=== PATIENT | female | born 1980 | race Hispanic/Latino ===

== ENCOUNTER 2017-08-28 08:09 | Observation (INO) | payer OTHER ==
--- NOTE | 2017-08-28 09:30 | ED PDOC ---
Arrival/HPI - General Chief Complaint: Dizziness/Lightheaded Time Seen by Provider: 08/28/17 08:58 Historian: Patient - History of Present Illness Narrative History of Present Illness (Text): 08/28/17 09:24 Pt is a 37 yo F with PMH of alcoholic cirrhosis s/p liver transplant presents to emergency department due to dizziness and near syncope. Patient states that for the last 2 months she has felt dizzy especially when standing up too fast, however the dizziness will not go away even after she starts to ambulate for a long period. Patient also admits to intermittent episodes of near syncope, but denies any history of LOC or falls. 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 Pt denies CP, SOB, n/v/d, abdominal pain, fever, chills, BECKER, or dysuria. PMD: William Cardio: Dave Time/Duration: > month Symptom Onset: Gradual Symptom Course: Unchanged Activities at Onset: Rest Past Medical History - Provider Review Nursing Documentation Reviewed: Yes - Infectious Disease Hx of Infectious Diseases: None - Tetanus Immunization Tetanus Immunization: Up to Date - Cardiac Hx Cardiac Disorders: No - Pulmonary Hx Respiratory Disorders: No - Neurological Hx Neurological Disorder: No - HEENT Hx HEENT Disorder: No - Renal Hx Renal Disorder: No - Endocrine/Metabolic Hx Endocrine Disorders: Yes (GESTATIONAL DIABETES) - Hematological/Oncological Hx Blood Disorders: Yes Hx Cirrhosis: Yes Other/Comment: Alcohol induced Hep. GAYATHRI - Integumentary Hx Dermatological Disorder: No - Musculoskeletal/Rheumatological Hx Musculoskeletal Disorders: No - Gastrointestinal Hx Gastrointestinal Disorders: Yes (END STAGE LIVER DSE-JAUNDICED,ASCITES) Hx Liver Failure: Yes - Genitourinary/Gynecological Hx Genitourinary Disorders: Yes (C [id number] X 1) - Psychiatric Hx Psychophysiologic Disorder: No Hx Substance Use: No - Surgical History Other/Comment: Liver transplant last year. - Anesthesia Hx Anesthesia: Yes Hx Anesthesia Reactions: No Hx Malignant Hyperthermia: No Family/Social History - Physician Review Nursing Documentation Reviewed: Yes Family/Social History: No Known Family HX Smoking Status: Never Smoked Hx Alcohol Use: Yes (ETOH ABUSE H/O LAST DRANK 3-4 MOS AGO. BOTTLE OF WINE DAILY ) Hx Substance Use: No Allergies/Home Meds Allergies/Adverse Reactions: Allergies Penicillins Adverse Reaction (Intermediate, Verified 08/28/17 08:41) RASH Home Medications: Home Meds Medication Instructions Recorded Confirmed Cyclosporine [Cyclosporine] 125 mg PO BID 08/28/17 08/28/17 Magnesium Oxide [Magnesium] 400 mg PO BID 08/28/17 08/28/17 Review of Systems - Review of Systems Constitutional: Normal Eyes: Normal ENT: Normal Respiratory: Normal Cardiovascular: Normal Gastrointestinal: Normal Genitourinary Female: Normal Musculoskeletal: Normal Skin: Normal Neurological: Dizziness Endocrine: Normal Hemo/Lymphatic: Normal Psychiatric: Normal Physical Exam Vital Signs Temp Pulse Resp BP Pulse Ox 08/28/17 11:32 98.6 F 84 18 127/78 100 08/28/17 08:46 98.6 F 77 17 134/83 99 08/28/17 08:37 98.2 F 81 18 134/83 100 Temperature: Afebrile Blood Pressure: Normal Pulse: Regular Respiratory Rate: Normal Appearance: Positive for: Non-Toxic Pain Distress: None Mental Status: Positive for: Alert and Oriented X 3 Finger Stick Blood Glucose: 97 - Systems Exam Head: Present: Atraumatic, Normocephalic Pupils: Present: PERRL Extroacular Muscles: Present: EOMI Conjunctiva: Present: Normal Mouth: Present: Moist Mucous Membranes Neck: Present: Normal Range of Motion Respiratory/Chest: Present: Clear to Auscultation, Good Air Exchange. No: Respiratory Distress, Accessory Muscle Use Cardiovascular: Present: Regular Rate and Rhythm, Normal S1, S2. No: Murmurs Abdomen: No: Tenderness, Distention, Peritoneal Signs Back: Present: Normal Inspection Upper Extremity: Present: Normal Inspection. No: Cyanosis, Edema Lower Extremity: Present: Normal Inspection. No: Edema Neurological: Present: GCS=15, CN II-XII Intact, Speech Normal Skin: Present: Warm, Dry, Normal Color. No: Rashes Psychiatric: Present: Alert, Oriented x 3, Normal Insight, Normal Concentration Medical Decision Making ED Course and Treatment: 08/28/17 09:34 37 yo F presents to emergency department with dizziness and episodes of near syncope. Plan: - CBC, CMP - Coags - Cardiac ISO - EKG - Head CT - Orthostatics - POC - Reassess and disposition Manual BP left arm 122/80, right arm 130/80 08/28/17 09:[address] w/o contrast Impression: Normal CT of Head 08/28/17 09:51 Orthostatics negative. EKG reviewed shows NSR, rate 74. 08/28/17 13:[address] Acosta, requests overnight observation. Case discussed with Dr. Thomas, who agrees with plan and accepts patient under her service. Patient admitted to remote telemetry for observation. - Lab Interpretations Lab Results: 08/28/17 10:25 08/28/17 10:25 Lab Results 08/28/17 10:25: PT 11.6, INR 1.01, APTT 27.4 08/28/17 10:25: Sodium 132, Potassium 5.1 H, Chloride 96 L, Carbon Dioxide 22, Anion Gap 18, BUN 19, Creatinine 0.8, Est GFR ( Amer) > 60, Est GFR (Non- Af Amer) > 60, Random Glucose 95, Calcium 9.4, Magnesium 2.1, Total Bilirubin 0.4, AST 27, ALT 25, Alkaline Phosphatase 77, Lactate Dehydrogenase 376, Total Creatine Kinase 138, Troponin I < 0.01, Total Protein 7.8, Albumin 4.7, Globulin 3.1, Albumin/Globulin Ratio 1.5 08/28/17 10:25: WBC 6.4 D, RBC 3.92, Hgb 11.4 L, Hct 32.0 L, MCV 81.6, MCH 29.1 , MCHC 35.6, RDW 13.4, Plt Count 179, MPV 8.8, Gran % 66.8, Lymph % (Auto) 24.4 , [place] % (Auto) 8.0 H, Eos % (Auto) 0.6 L, Baso % (Auto) 0.2, Gran # 4.28, Lymph # (Auto) 1.6, [place] # (Auto) 0.5, Eos # (Auto) 0.0, Baso # (Auto) 0.01 08/28/17 08:52: POC Glucose (mg/dL) 97 - RAD Interpretation Radiology Orders: 08/28/17 09:13 HEAD W/O CONTRAST [CT] Stat 08/28/17 12:31 CAROTID & VERTEBRAL DUPLEX [US] Urgent - Medication Orders Current Medication Orders: Cyclosporine (Sandimmune) 100 mg PO BID MARIO Cyclosporine (Sandimmune) 25 mg PO BID MARIO Discontinued Medications Cyclosporine (Sandimmune) 125 mg PO BID MARIO Disposition/Present on Arrival - Present on Arrival Any Indicators Present on Arrival: No History of DVT/PE: No History of Uncontrolled Diabetes: No Urinary Catheter: No History of Decub. Ulcer: No History Surgical Site Infection Following: None - Disposition Have Diagnosis and Disposition been Completed?: Yes Diagnosis: Near syncope Disposition: HOME/ ROUTINE Disposition Time: 13:03 Patient Plan: Admission, Other (Remote telemetry) Condition: STABLE
--- NOTE | 2017-08-28 09:43 | CT ---
PROCEDURE: CT HEAD WITHOUT CONTRAST. HISTORY: near syncope COMPARISON: None available. TECHNIQUE: Axial computed tomography images were obtained through the head/brain without intravenous contrast. Radiation dose: Total exam DLP = 768.5 mGy-cm. This CT exam was performed using one or more of the following dose reduction techniques: Automated exposure control, adjustment of the mA and/or kV according to patient size, and/or use of iterative reconstruction technique. FINDINGS: HEMORRHAGE: No intracranial hemorrhage. BRAIN: No mass effect or edema. No atrophy or chronic microvascular ischemic changes. VENTRICLES: Unremarkable. No hydrocephalus. CALVARIUM: Unremarkable. PARANASAL SINUSES: Unremarkable as visualized. No significant inflammatory changes. MASTOID AIR CELLS: Unremarkable as visualized. No inflammatory changes. OTHER FINDINGS: None. IMPRESSION: Normal CT of the Head. No intracranial mass, hemorrhage or evidence of acute infarct.
[2017-08-28 10:49] LABS: BASO # 0.01 K/mm3 (0.0-2.0); BASO % 0.2 % (0.0-3.0); EOS % 0.6 % (1.5-5.0); GRAN # 4.28 (1.4-6.5); GRAN % 66.8 % (50.0-68.0); HEMOGLOBIN 11.4 g/dL (12.0-16.0); LYMPH # 1.6 (1.2-3.4); LYMPH % 24.4 % (22.0-35.0); MEAN CELL VOLUME 81.6 fl (80.0-105.0); MEAN CORPUSCULAR HEMOGLOBIN 29.1 pg (25.0-35.0); MEAN CORPUSCULAR HGB CONC 35.6 g/dl (31.0-37.0); MEAN PLATELET VOLUME 8.8 fl (7.0-11.0); MONO # 0.5 (0.1-0.6); RBC 3.92 10^6/uL (3.5-6.1); RED CELL DISTRIBUTION WIDTH 13.4 % (11.5-14.5); WHITE BLOOD COUNT 6.4 10^3/ul (4.5-11.0)
[2017-08-28 10:57] LABS: ALB/GLOB RATIO 1.5 (1.1-1.8); ALBUMIN 4.7 g/dL (3.0-4.8); ALT/SGPT 25 U/L (7-56); AST/SGOT 27 U/L (14-36); BLOOD UREA NITROGEN 19 mg/dL (7-21); CALCIUM 9.4 mg/dL (8.4-10.5); GFR AFRICAN-AMERICAN > 60; GFR NON-AFRICAN AMERICAN > 60
[2017-08-28 11:03] LABS: INR 1.01 (0.93-1.08); PARTIAL THROMBOPLASTIN TIME 27.4 Seconds (25.1-36.5); PROTHROMBIN TIME 11.6 SECONDS (9.4-12.5)
[2017-08-28 11:08] LABS: TROPONIN I < 0.01 ng/mL
[2017-08-28] MEDS ORDERED: Sodium Chloride 0.45% 1,000 ML IV SCH (17:30)
--- NOTE | 2017-08-28 19:30 | US ---
PROCEDURE: Bilateral carotid artery duplex ultrasound HISTORY: Carotid stenosis syncope PHYSICIAN(S): Russ Danielson MD. TECHNIQUE: Duplex sonography and color-flow Doppler were used to evaluate the carotid bifurcations and limited segments of the vertebral arteries bilaterally. FINDINGS: There is mild smooth hypoechoic plaque noted at the carotid bifurcations bilaterally. The peak systolic velocity in the proximal right internal carotid artery is 83 cm/sec. This corresponds to a 0-19 percent proximal right ICA stenosis. Normal systolic velocities are noted in the proximal right external carotid artery. There is antegrade flow in the right vertebral artery. The peak systolic velocity in the proximal left internal carotid artery is 71 cm/sec. This corresponds to a 0-19 percent proximal left ICA stenosis. Normal systolic velocities are noted in the proximal left external carotid artery. There is antegrade flow in the left vertebral artery. IMPRESSION: 1. Bilateral 0-19 percent proximal ICA stenoses. 2. Antegrade flow in both vertebral arteries.
--- NOTE | 2017-08-28 20:24 | CON ---
DATE: 08/28/2017 CARDIOLOGY CONSULTATION HISTORY: The patient is a 37-year-old woman who presents with recurrent dizziness as well as near syncopal episodes. The patient's past medical history is notable for history of liver transplantation after liver failure. She is currently on suppressive therapy post liver transplant. In addition, the patient is receiving magnesium as well as sodium pills for metabolic abnormalities. When I saw her in the office, the patient's blood pressure was 90 with differences in blood pressure from the left and right arm. She denies previous cardiac history. PHYSICAL EXAMINATION: VITAL SIGNS: Currently, she was seen in the emergency room where her blood pressures are equal in the upper extremities at 134/83. NECK: Negative JVD. LUNGS: Without rales. HEART: Reveals S1, S2. EXTREMITIES: Without edema. LABORATORY DATA: EKG is unremarkable. Potassium is 5.1, sodium is 132. Hemoglobin is 11.4. IMPRESSION: 1. Recurrent near syncopal episodes. 2. Transient hypotension. 3. History of liver transplantation. 4. Anemia. 5. Marked anxiety. PLAN: Given these findings, we will obtain a carotid ultrasound. We will observe her on telemetry for 24 hours and monitor serial blood pressures. Russ Acosta MD
[2017-08-28 21:00] VITALS: BMI 30.2
--- NOTE | 2017-08-28 22:11 | CARD ---
APPROVED REPORT EKG Measurement Heart [id number] <Conclusion> Normal sinus rhythm Normal ECG
[2017-08-29 07:41] LABS: ALB/GLOB RATIO 1.4 (1.1-1.8); ALBUMIN 4.3 g/dL (3.0-4.8); ALT/SGPT 27 U/L (7-56); AST/SGOT 28 U/L (14-36); BLOOD UREA NITROGEN 13 mg/dL (7-21); GFR AFRICAN-AMERICAN > 60; GFR NON-AFRICAN AMERICAN > 60
[2017-08-29 07:53] VITALS: BP 122/86; RESP 20; TEMP 98; O2SAT 98
--- NOTE | 2017-08-29 08:45 | HP ---
HISTORY OF PRESENT ILLNESS: The patient is a 37-year-old, she was seen in office day before yesterday. 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 I gave her meclizine with no significant relief. She was supposed to see Dr. Acosta yesterday who found that her blood pressure was low at 90/60 in both arms. So he referred her to be admitted and have close monitoring done. Patient denies any nausea or vomiting. No history of diarrhea. Patient states she is usually hyponatremic and she takes 1 g of sodium daily. She denies any fever. No chills. No nausea or vomiting. Only has dizziness. PAST MEDICAL HISTORY: She is heavy alcohol abuser and she went in to hepatic failure, ended up having liver transplant in 2017, has been doing well since then. She was on anti-rejection medication earlier, but currently she is only on cyclosporine. ALLERGIES: SHE IS ALLERGIC TO PENICILLIN. MEDICATIONS: At home, she is on sodium 1 g every 12 hours and she takes cyclosporine 125 mg twice a day. SOCIAL HISTORY: She was a heavy alcohol abuser, and does not drink anymore. No history of smoking. PHYSICAL EXAMINATION: GENERAL: She is awake, alert, oriented. She states she feels well when she is steady and when she is not standing up; while in bed, dizziness is not there; however, when she stands up, she feel dizzy. VITAL SIGNS: She is afebrile, pulse 81, respirations 19, blood pressure 130/69. LUNGS: Bilateral fair airflow. No rhonchi or crackle. HEART: S1 and S2 audible. ABDOMEN: Soft, nontender. No rebound. No guarding. NEUROLOGICAL: She is awake, alert, oriented and communicative. LABORATORY DATA: WBC is 6.4, hemoglobin 11.4, hematocrit 32, platelet 179. PT 11.6, INR 1.06. Chemistry: Sodium 132, potassium 5.1, chloride 96, CO2 of 22, BUN 19, creatinine 0.8. Blood sugar of 95. DIAGNOSTIC DATA: Carotid Doppler is pending. CT scan of the head normal, no intracranial mass. ASSESSMENT: 1. Dizziness, probably benign positional vertigo. 2. History of liver transplant, currently on cyclosporine. 3. Hyperkalemia, etiology unknown. PLAN: Give her IV fluids. Monitor her blood pressure. Follow up carotid Doppler. If patient remains stable, she will be discharged in the a.m. Dave Thomas MD
[2017-08-29] MEDS ORDERED: Magnesium Oxide 400 mg Tab UD PO SCH (10:00)
--- NOTE | 2017-08-29 11:35 | PN ---
DATE: 08/29/2017 SUBJECTIVE: The patient is ambulating without dizziness, feeling well. PHYSICAL EXAMINATION: VITAL SIGNS: Blood pressure is 122/86, heart rate in the 70s. Review of playground monitor reveals no arrhythmias. NECK: Negative JVD. LUNGS: Without rales. HEART: Reveals S1, S2. EXTREMITIES: Without edema. LABORATORY DATA: The hemoglobin is 11.4. Chemistries unremarkable except for a sodium of 128. IMPRESSION: 1. No cardiac arrhythmias. 2. No dizzy or near syncopal episodes. 3. No hypotension. 4. History of liver transplantation. 5. Anemia. 6. Anxiety which is better. Given these findings, her workup has been unremarkable. I will discontinue telemetry today. From a cardiac perspective, the patient can be discharged. Russ Acosta MD
[2017-08-29 11:51] VITALS: PULSE 94
--- NOTE | 2017-08-29 23:43 | DS ---
HISTORY OF PRESENT ILLNESS: The patient is 37 years old, seen and examined, seems to be doing better. She states she feels dizzy when she stand up or walk. She was monitored for 24 hours. Her blood pressure instead of being hypo, it has been running hypertension. Denies any fever or chills. No nausea or vomiting. PHYSICAL EXAMINATION: VITAL SIGNS: She is afebrile, pulse 78, respirations 20, blood pressure 122/86. LUNGS: Bilateral fair airflow. No rhonchi or crackle. HEART: S1 and S2 audible. ABDOMEN: Soft. Nontender. No rebound. No guarding. NEUROLOGICAL: The patient is awake, alert, oriented, communicative. LABORATORY EXAM: Sodium 128, potassium 4.8, chloride 94, CO2 of 23, BUN 13, creatinine 0.8, blood sugar of 102. LFTs are within normal limit. ASSESSMENT: 1. Dizziness, but etiology unclear. 2. Hyponatremia. 3. History of liver transplant. 4. Chronic anemia. PLAN: I advised the patient to cut down her sodium pill to once a day and we will check her sodium level next week. She will monitor her blood pressure at home. If it is running above 140, we might have discharge her on antihypertensive. Follow up the patient in the office . Dave Thomas MD
== END 2017-08-29 12:55 | disposition home or self-care (01) ==
LOC: ED 08:09 → ERH 12:32 → 3RSO 14:33
PROVIDERS: ADMIT Internal Medicine; ATTEND Internal Medicine
DX: R42 Dizziness and giddiness (principal); R55 Syncope and collapse; E87.5 Hyperkalemia; E87.1 Hypo-osmolality and hyponatremia; D64.9 Anemia, unspecified; Z94.4 Liver transplant status; F41.9 Anxiety disorder, unspecified; Z88.0 Allergy status to penicillin
CPT/HCPCS: 36415; 70450; 80053; 82550; 82948; 83615; 83735; 84484; 85025; 85610; 85730; 93005; 93880; 99285; G0378; J7502; J7515